=== PATIENT | female | born 1975 | race Caucasian/White ===

== ENCOUNTER → 2017-07-30 | Day surgery (SDC) | payer OTHER, BC ==
--- NOTE | 2017-07-31 13:55 | OP ---
DATE OF OPERATION: 07/30/2017 PREOPERATIVE DIAGNOSIS: Right breast mass 10 o'clock 10 cm from the nipple. POSTOPERATIVE DIAGNOSIS: Right breast mass 10 o'clock 10 cm from the nipple. PROCEDURE: Right ultrasound-guided core biopsy with clip placement. ANESTHESIA: Local. ATTENDING SURGEON: Scot Patino MD ESTIMATED BLOOD LOSS: Minimal. COMPLICATIONS: None. DESCRIPTION OF PROCEDURE: The patient was made aware of the risks and benefits of the procedure and consented. She was placed in the supine position. Under sterile conditions with 1% lidocaine for local anesthesia, a small viji was made in the skin. Using a 13-gauge suction biopsy device and inferolateral approach, multiple cores were obtained. Likewise, under ultrasound guidance, a U-shaped clip was placed into the biopsy region. Steri-Strips and a sterile bandage was applied. Well tolerated by the patient. We will contact her with the results. SCOT PATINO M.D. [id number]
--- NOTE | 2017-08-01 14:11 | PATH ---
Surgical Pathology Report Patient Name: BARB [facility]. Rec. #: [id number] /Age/Gender: 1975 (Age: 42) / F Account: [id number] Location: Taken: 07/30/2017 Received: 07/30/2017 Reported: 08/01/2017 Physicians: Scot Patino M.D. Specimen(s) Received RIGHT BREAST 10N10 CORE BIOPSY Clinical History Palpable mass Ultrasound findings: Probably benign Final Diagnosis BREAST, RIGHT, 10:00, 10 CM FN, CORE BIOPSY: FIBROEPITHELIAL LESION (SEE NOTE). Note: This fibroepithelial lesion shows areas of stromal expansion with stromal hypercellularity, mild stromal cellular atypia and rare mitoses. The differential diagnosis includes phyllodes tumor and cellular fibroadenoma. Complete excision of the lesion is recommended for definitive classification. Electronically Signed Hanna Worthington M.D. Gross Description Received in formalin, labeled "right breast biopsy 10:00, 10 cmfn," are 7 arroyo-yellow, cylindrical portions of fibroadipose tissue ranging from 0.7-2.0 cm. in length and averaging 0.2 cm. in diameter. The specimen is submitted in toto in one cassette. Time to formalin fixation: < 1 minute Total formalin fixation time: Approximately 28 hours. 07/31/2017 [facility]07/31/2017
== END | disposition home or self-care (01) ==
LOC: FRADUS-SUR 12:50
PROVIDERS: ATTEND Surgery Surgical Oncology
PROC: 0HBT3ZX Excision of Right Breast, Percutaneous Approach, Diagnostic (ICD-10-PCS; principal; 2017-07-30)
DX: D24.1 Benign neoplasm of right breast (principal); N63.11 Unspecified lump in the right breast, upper outer quadrant
CPT/HCPCS: 19083; 87899; 88305-TC; A4648

== ENCOUNTER 2017-09-25 07:02 | Day surgery (SDC) | payer OTHER, BC ==
[2017-09-18 12:59] VITALS: BMI 35.2
--- NOTE | 2017-09-19 09:06 | HP ---
Admitting History and Physical - Primary Care Physician PCP: Scot Patino - Admission Chief Complaint: Right breast atypia /phylloides tumor History of Present Illness: 42 year old postmenapausal femal with H/O bilateral fibroadenomas. US bilateral 07/11/2017 showed new mass corresponding to 10:00 right breast birad 4. 07/2017 US core biopsy right breast 10:00 showed fibroepithelial lesion with atypia Excision advised. History Source: Patient Limitations to Obtaining History: No Limitations - Past Medical History Cardiovascular: Yes: HTN ...LMP: 09/15/17 ENT: Yes: Sinusitis (chronic) Endocrine: Yes: Other (multinodular goiter) - Past Surgical History Additional Past Surgical History: right oophorectomy 1992 ovarian cyst hemithyroidectomy goiter 2006 left US core bx 2012 fibroadenoma left FNA benign 2012 - Smoking History Smoking history: Never smoked Aproximately how many cigarettes per day: 0 - Alcohol/Substance Use Hx Alcohol Use: Yes (SOCIALLY) Home Medications - Allergies Allergies/Adverse Reactions: Allergies Allergy/AdvReac Type Severity Reaction Status Date / Time naproxen Allergy Intermediate Swelling Verified 05/01/16 18:43 shellfish derived Allergy Intermediate ABDOMINAL Verified 09/18/17 12:51 PAIN - Home Medications Home Medications: Ambulatory Orders Labetalol HCl [Normodyne] 100 mg PO BID 01/27/13 Levothyroxine [Synthroid] 88 mcg PO DAILY 01/27/13 Cholecalciferol (Vitamin D3) [Vitamin D3] 2,000 unit PO DAILY 09/18/17 Multivitamin [One Daily] 1 each PO DAILY 09/18/17 Family Disease History - Family Disease History Family Disease History: Heart Disease: Grandparent (GM vulvar ca), CA: Grandparent Physical Examination Constitutional: Yes: Well Nourished, No Distress Breast(s): Yes: Other (diffuselly nodular no palpable mass or adenopathy post bx changes right breast 10:00) Problem List - Problems (1) Atypical ductal hyperplasia of right breast Code(s): N60.91 - UNSPECIFIED BENIGN MAMMARY DYSPLASIA OF RIGHT BREAST Assessment/Plan Right breast wide excision with mammogram needle localization
[2017-09-25] MEDS ORDERED: MIDAZOLAM HCL 2 MG/2 ML SINGLE DOSE VIAL ONE (10:37)
[2017-09-25] MEDS ORDERED: LIDOCAINE HCL 1%, 10 MG/ML (20ML VIAL) ONE (10:51)
[2017-09-25] MEDS ORDERED: PROPOFOL 20 ML ONE ×2 (10:59)
[2017-09-25] MEDS ORDERED: ceFAZolin SODIUM 1 GM VIAL ONE (11:10)
[2017-09-25] MEDS ORDERED: DEXAMETHASONE SOD PHOSPHATE 4 MG/1 ML VIAL ONE (11:10)
[2017-09-25] MEDS ORDERED: ONDANSETRON 4 MG/2 ML VIAL ONE (11:10)
[2017-09-25] MEDS ORDERED: BUPIVACAINE HCL 0.25% 125 MG/50 ML VIAL ONE (11:41)
[2017-09-25] MEDS ORDERED: LACTATED RINGERS SOLUTION 1,000 ML IV SCH (12:00)
[2017-09-25] MEDS ORDERED: ONDANSETRON 4 MG/2 ML VIAL IVPUSH PRN ×2 (12:00→12:01)
[2017-09-25] MEDS ORDERED: oxyCODONE HCL 5 MG TABLET PO PRN (12:00)
[2017-09-25] MEDS ORDERED: KETOROLAC TROMETHAMINE 30 MG/1 ML VIAL IVPUSH PRN (12:01)
[2017-09-25] MEDS ORDERED: DEXTROSE 5%-0.45% SALINE 1,000 ML IV SCH (12:15)
[2017-09-25] MEDS ORDERED: ACETAMINOPHEN 500 MG TABLET (FP) ONE (13:40)
[2017-09-25 15:28] VITALS: BP 136/84; PULSE 82; TEMP 98
--- NOTE | 2017-09-28 16:30 | PATH ---
Surgical Pathology Report Patient Name: BARB [facility]USU [facility]. Rec. #: [id number] /Age/Gender: 1975 (Age: 42) / F Account: [id number] Location: [facility] AMBULATORY Taken: 09/25/2017 Received: 09/25/2017 Reported: 09/28/2017 Physicians: Scot Patino M.D. Specimen(s) Received RIGHT BREAST WIDE EXCISION Clinical History Rule out phyllodes Final Diagnosis BREAST, RIGHT, WIDE EXCISION: CELLULAR FIBROADENOMA. REMAINING BREAST TISSUE SHOWS FIBROCYSTIC CHANGES INCLUDED CYSTIC APOCRINE METAPLASIA AND MILD USUAL DUCTAL HYPERPLASIA (UDH). PRIOR BIOPSY SITE CHANGES ARE PRESENT. Electronically Signed Hanna Worthington M.D. Gross Description Received in formalin, labeled "right breast wide excision," is a 2.8 x 2.7 x 2.6 cm. arroyo-yellow, irregular, portion of fibroadipose tissue with a needle localization wire present. There is a short suture marking the superior aspect and a long suture marking the lateral aspect, per the surgeon. There is no skin or nipple present. The specimen is inked as follows: superior and lateral blue; inferior green; medial yellow; anterior red; deep black. The specimen is serially sectioned from lateral to medial. Sectioning reveals a 1.8 x 1.5 x 1.3 cm arroyo, firm to rubbery, well-circumscribed mass at 0.1 cm from the deep margin. The mass is focally at 0.2 cm from the inferior margin, 0.5 cm from the superior margin and is 0.9 cm from the anterior margin. The mass is focally surrounded by dense white fibrous tissue. Invoice Classification Clerk sections are submitted in 6 cassettes as follows: 1-3-one full face section of mass each (each with superior, inferior and deep margins); 4-anterior margin; 5-lateral margin; 6-medial margin. Time to formalin fixation: 4 minutes Total formalin fixation time: Approximately 30 hours. 09/26/201709/26/2017
--- NOTE | 2017-10-08 20:17 | OP ---
DATE OF OPERATION: 09/25/2017 PREOPERATIVE DIAGNOSIS: Right breast cellular fibroadenoma. POSTOPERATIVE DIAGNOSIS: Right breast cellular fibroadenoma. PROCEDURE: Right breast mammographically-localized partial mastectomy. ANESTHESIA: General intubated. ATTENDING SURGEON: Scot Patino MD ESTIMATED BLOOD LOSS: Minimal. COMPLICATIONS: None. DESCRIPTION OF PROCEDURE: Patient was made aware of the risks and benefits of the procedure and consented. She was placed in supine position after going to the Radiology Suite where a needle and wire were placed next to the index lesion. After general anesthesia was induced, the patient was intubated. The operative site was prepped and draped in the usual sterile fashion. Curvilinear incision was made next to the needle and wire. Using electrocautery, thick skin flaps were made. The needle was withdrawn through the puncture site and the wire through the wound. Tissues around the wire were then sharply excised and submitted with a short suture superior, long suture lateral. Specimen radiograph confirmed the presence of the index lesion. The wound was copiously irrigated with normal saline. Hemostasis maintained by electrocautery. The wound was then closed with deep 3-0 Vicryl, followed by a running subcuticular 4-0 Monocryl. Steri-Strips, sterile dressing, and a compression bra were then applied, and the patient, having tolerated the procedure well, was taken to the recovery room in excellent condition. SCOT PATINO M.D. [id number]
== END 2017-09-25 14:45 | disposition home or self-care (01) ==
LOC: FASU 07:02
PROVIDERS: ATTEND Surgery Surgical Oncology
PROC: 0HBT0ZZ Excision of Right Breast, Open Approach (ICD-10-PCS; principal; 2017-09-25 11:20)
DX: D24.1 Benign neoplasm of right breast (principal)
CPT/HCPCS: 19281; 84703; 88307-TC; 94760

== ENCOUNTER 2018-07-24 12:45 | Day surgery (SDC) | payer OTHER, BC ==
[2018-07-24 09:28] VITALS: BMI 33.5
[2018-07-24 13:41] LABS: EOS % 3.9 % (0-4.5); HEMATOCRIT 41.6 % (32.4-45.2); HEMOGLOBIN 13.7 GM/dL (10.7-15.3); LYMPH % 18.7 % (8-40); MCHC 32.9 g/dl (32.0-36.0); MEAN CELL VOLUME 94.2 fl (80-96); MEAN PLT VOLUME 7.1 fl (7.5-11.1); MONO % 9.4 % (3.8-10.2); PLATELET COUNT 347 K/MM3 (134-434); RBC 4.42 M/mm3 (3.60-5.2); RDW 14.4 % (11.6-15.6); WHITE BLOOD COUNT 9.5 K/mm3 (4.0-10.0)
[2018-07-24] MEDS ORDERED: MIDAZOLAM HCL 2 MG/2 ML SINGLE DOSE VIAL ONE (13:56)
[2018-07-24] MEDS ORDERED: PROPOFOL 20 ML ONE (13:56)
[2018-07-24] MEDS ORDERED: LIDOCAINE HCL/PF 2% SDV 5ML VIAL ONE (13:58)
[2018-07-24 14:03] LABS: ALBUMIN 3.8 g/dl (3.4-5.0); ALK PHOS 55 U/L (45-117); ANION GAP 4 MMOL/L (8-16); BILIRUBIN,TOTAL 0.5 mg/dL (0.2-1); BLOOD UREA NITROGEN 11 mg/dL (7-18); CALCIUM 8.9 mg/dL (8.5-10.1); CHLORIDE 110 mmol/L (98-107); CO2 24 mmol/L (21-32); CREATININE 0.7 mg/dL (0.55-1.3); GLUCOSE,RANDOM 85 mg/dL (74-106); SGOT/AST 16 U/L (15-37); SGPT/ALT 23 U/L (13-61); SODIUM 138 mmol/L (136-145); TOT PROT 6.7 g/dl (6.4-8.2)
[2018-07-24] MEDS ORDERED: PROMETHAZINE HCL 25 MG/1 ML VIAL IVPUSH PRN (14:04)
[2018-07-24] MEDS ORDERED: ONDANSETRON 4 MG/2 ML VIAL IVPUSH PRN (14:04)
[2018-07-24] MEDS ORDERED: LACTATED RINGERS SOLUTION 1,000 ML IV SCH (14:15)
[2018-07-24] MEDS ORDERED: DEXAMETHASONE SOD PHOSPHATE 4 MG/1 ML VIAL ONE (14:25)
[2018-07-24] MEDS ORDERED: KETOROLAC TROMETHAMINE 30 MG/1 ML VIAL ONE (14:29)
--- NOTE | 2018-07-24 15:55 | OP ---
Operative Note - Note: Operative Date: 07/24/18 Pre-Operative Diagnosis: Other abnormal products of coneption, missed Ab vs. ectopic Operation: Suction, D&C Findings: Enlarged fibroid uterus Small amount of endometrial curretings Post-Operative Diagnosis: Same as Pre-op Surgeon: Erasmo Guajardo Anesthesiologist/EXECUTIVE SALES ASSISTANT: Jace Figueredo Anesthesia: General Specimens Removed: POC Estimated Blood Loss (mls): 30 Drains, Volume Out (mls): 0 Blood Volume Replaced (mls): 0 Fluid Volume Replaced (mls): 200 Operative Report Dictated: Yes
[2018-07-24 17:19] VITALS: BP 133/77; PULSE 80; TEMP 99.3
--- NOTE | 2018-07-24 19:33 | OP ---
DATE OF OPERATION: 07/24/2018 PREOPERATIVE DIAGNOSIS: Other abnormal products of conception, missed versus ectopic , uterine fibroids. POSTOPERATIVE DIAGNOSIS: Other abnormal products of conception, missed versus ectopic , uterine fibroids. OPERATION: Suction dilation and curettage. SURGEON: Erasmo Guajardo MD SOURCING ASSISTANT: None. ANESTHESIOLOGIST: Jace Figueredo MD ANESTHESIA: General. COMPLICATIONS: None. ESTIMATED BLOOD LOSS: 30 mL. IV FLUIDS: 200 mL crystalloid. PATHOLOGY: Endometrial curettings and products of conception. FINDINGS: Examination under anesthesia revealed an enlarged uterus with fibroids. Suction curettage revealed a small amount of endometrial tissue with possible products of conception. No complications. Good hemostasis. PROCEDURE: The patient was met preoperatively. Risks, benefits, and alternatives of surgery were discussed in detail. All questions were answered. The patient was brought to the OR with the IV running. She was placed on the surgical table in the supine position. The general anesthesia was achieved without difficulty. The patient was then placed in a dorsal lithotomy position using adjustable Lino stirrups. Examination under anesthesia was done with the findings as above. The time-out procedure was conducted as per standard protocol. The patient was then prepped and draped in the usual sterile fashion. A weighed speculum was introduced inside the vagina with good visualization of the cervix. The cervix was grasped with a single-tooth tenaculum. The endocervical canal was dilated to accommodate a size 23 Hernandez dilator. A 7-mm suction curette was then used to perform a suction uterine curettage. A thorough curettage was performed with tissue submitted to Pathology. Once this was completed, a sharp curettage was performed gently to ensure no retained products of conception. The uterine cavity was noted to be markedly enlarged and sounded to approximately 11-12 cm. Once the procedure was completed, all of the instruments were removed from the patient. Sponge, lap, and instrument counts were correct. Good hemostasis was confirmed. The patient was returned to supine position. The patient was then transferred to recovery room in stable condition. Chadd [id number]
--- NOTE | 2018-07-25 11:01 | PATH ---
Surgical Pathology Report Patient Name: [facility]B [facility]. Rec. #: [id number] /Age/Gender: 1975 (Age: 43) / F Account: [id number] Location: [facility] SURGICAL Taken: 07/24/2018 Received: 07/24/2018 Reported: 07/25/2018 Physicians: Erasmo Guajardo M.D. Specimen(s) Received PRODUCTS OF CONCEPTION Clinical History Missed , rule out ectopic Final Diagnosis PRODUCTS OF CONCEPTION, SUCTION DILATION AND CURETTAGE: CHORIONIC VILLI AND DECIDUA PRESENT, CONSISTENT WITH PRODUCTS OF CONCEPTION. This case was discussed with KAYLEIGH Tsai of Dr. Guajardo's office on July 25, 2018. Electronically Signed Anuradha Portillo M.D. Gross Description Received in formalin labeled "products of conception," is a 6.5 x 5.1 x 0.6 cm aggregate of arroyo red soft tissue fragments. No definite villous tissue were somatic tissue is identified. The specimen is entirely submitted in 8 cassettes. /07/24/2018 [place]07/24/2018
== END 2018-07-24 17:15 | disposition home or self-care (01) ==
LOC: JASU-SURG 12:45
PROVIDERS: ATTEND Obstetrics & Gynecology
PROC: 10D17ZZ Extraction of Products of Conception, Retained, Via Natural or Artificial Opening (ICD-10-PCS; principal; 2018-07-24 15:30)
DX: O02.1 Missed abortion (principal)
CPT/HCPCS: 36415; 80053; 84702; 85025; 86850; 86900; 86901; 88305-TC; 94760

== ENCOUNTER 2019-12-15 17:16 | Emergency (ER) | payer OTHER, BC ==
--- NOTE | 2019-12-15 17:43 | PDOC ---
Rapid Medical Evaluation Medical Evaluation: Allergies Allergy/AdvReac Type Severity Reaction Status Date / Time naproxen Allergy Intermediate Swelling Verified 07/24/18 09:37 shellfish derived Allergy Intermediate ABDOMINAL Verified 07/24/18 09:37 PAIN I have performed a brief in-person evaluation of this patient. The patient presents with a chief complaint of: 13 weeks with vaginal bleeding today; denies abd/pelvic pain Pertinent physical exam findings: In NAD, deferred I have ordered the following: labs, pelvic US The patient will proceed to the ED for further evaluation. 12/15/19 17:42 Discharge Disposition - Referrals Referrals: Freddie Roberts MD [Primary Care Provider] - - Patient Instructions - Post Discharge Activity
[2019-12-15 17:44] VITALS: BP 166/89; PULSE 100; TEMP 98.8; BMI 34.4
[2019-12-15] MEDS ORDERED: SODIUM CHLORIDE 0.9% 500 ML INFUS.BAG IV ONE (19:20)
[2019-12-15 19:54] LABS: BASO % 0.4 % (0-2.0); EOS % 3.9 % (0-4.5); HEMATOCRIT 40.1 % (32.4-45.2); HEMOGLOBIN 13.4 GM/dL (10.7-15.3); LYMPH % 15.8 % (8-40); MCH 31.7 pg (25.7-33.7); MCHC 33.4 g/dl (32.0-36.0); MEAN PLT VOLUME 7.4 fl (7.5-11.1); MONO % 9.7 % (3.8-10.2); NEUT % 70.2 % (42.8-82.8); PLATELET COUNT 386 K/MM3 (134-434); RBC 4.23 M/mm3 (3.60-5.2); RDW 14.4 % (11.6-15.6); WHITE BLOOD COUNT 13.8 K/mm3 (4.0-10.0)
--- NOTE | 2019-12-15 20:23 | PDOC ---
History of Present Illness - General Chief Complaint: Vaginal Bleeding Stated Complaint: 13 WKS BLEEDING Time Seen by Provider: 12/15/19 17:42 History Source: Patient - History of Present Illness Initial Comments: 12/15/19 20:23 44 year old female c/o vaginal bleeding (felt a sudden gush) since 4.30pm. patient reports slight pelvic cramping.patient denies Nausea, vomiting. denies urinary symptoms. PMHX: Hypertension, multinodular thyroid cyst. Dr. Barber 12/15/19 20:26 12/16/19 06:00 Past History - Past Medical History Allergies/Adverse Reactions: Allergies Allergy/AdvReac Type Severity Reaction Status Date / Time naproxen Allergy Intermediate Swelling Verified 12/15/19 17:44 shellfish derived Allergy Intermediate ABDOMINAL Verified 12/15/19 17:44 PAIN Home Medications: Ambulatory Orders Levothyroxine [Synthroid -] 88 mcg PO DAILY 01/27/13 Cholecalciferol (Vitamin D3) [Vitamin D3] 2,000 unit PO DAILY 09/18/17 Multivitamin [One Daily] 1 each PO DAILY 09/18/17 Labetalol HCl [Normodyne -] 200 mg PO BID 09/25/17 Oxycodone HCl/Acetaminophen [Percocet 5-325 mg Tablet -] 1 - 2 tab PO Q6H #20 tablet MDD 6 09/25/17 metroNIDAZOLE [Flagyl -] 500 mg PO BID #14 tablet 07/24/18 Anemia: No Asthma: No Cancer: No Cardiac Disorders: No CVA: No COPD: No CHF: No Dementia: No Diabetes: No GI Disorders: No Disorders: No HTN: Yes Hypercholesterolemia: No Liver Disease: No Seizures: No Thyroid Disease: Yes (MULTI-NODULAR GOITER REMOVED 2006) - Surgical History Abdominal Surgery: Yes (OVARIAN CYST REMOVED) Appendectomy: No Cardiac Surgery: No Cholecystectomy: No Lung Surgery: No Neurologic Surgery: No Orthopedic Surgery: No - Psycho Social/Smoking Cessation Hx Smoking Status: No Smoking History: Never smoked Number of Cigarettes Smoked Daily: 0 Hx Alcohol Use: Yes (SOCIALLY) Drug/Substance Use Hx: No Substance Use Type: Alcohol Hx Substance Use Treatment: No Review of Systems - Review of Systems Able to Perform ROS?: Yes Is the patient limited Latvian proficient: No : Yes: Other (vaginal bleeding) *Physical Exam - Vital Signs Last Vital Signs Temp Pulse Resp BP Pulse Ox 98.8 F 100 H 18 166/89 97 12/15/19 17:42 12/15/19 17:42 12/15/19 17:42 12/15/19 17:42 12/15/19 17:42 - Physical Exam General Appearance: Yes: Appropriately Dressed Respiratory/Chest: positive: Normal Breath Sounds Female Pelvic Exam: positive: normal external exam, cervical os closed, other ( minimal bleeding in vaginal vault). negative: adnexal tenderness Gastrointestinal/Abdominal: positive: Normal Bowel Sounds, Soft. negative: Tender Integumentary: positive: Normal Color, Dry, Warm Neurologic: positive: Fully Oriented, Alert ED Treatment Course - LABORATORY CBC & Chemistry Diagram: 12/15/19 17:55 12/15/19 17:55 - ADDITIONAL ORDERS Additional order review: 12/15/19 17:55 RBC 4.23 MCV 95.0 MCHC 33.4 RDW 14.4 MPV 7.4 L Neutrophils % 70.2 Lymphocytes % 15.8 Monocytes % 9.7 Eosinophils % 3.9 Basophils % 0.4 ED Progress Note - Progress Note Progress Note: 12/16/19 06:01 A: Vaginal Bleeding P: cbc cmp beta hcg Type and screen: o positive US Discharge - Discharge Information Problems reviewed: Yes Clinical Impression/Diagnosis: Vaginal bleeding in Disposition: HOME - Follow up/Referral Referrals: Freddie Roberts MD [Staff Physician] - Call tomorrow - Patient Discharge Instructions Patient Printed Discharge Instructions: Vaginal Bleeding During Additional Instructions: Pelvic rest until cleared by marine electronics technician Return to the ER if you are soaking 2 pads per hour, severe abdominal pain, or worsening symptoms. It is very important that you follow-up with emissions technician as soon as possible. Return to the emergency room for any worsening symptoms - Post Discharge Activity Work/Back to School Note: Back to Work
[2019-12-15 20:46] LABS: ALBUMIN 3.4 g/dl (3.4-5.0); BILIRUBIN,TOTAL 0.2 mg/dL (0.2-1); BLOOD UREA NITROGEN 11.4 mg/dL (7-18); CALCIUM 9.2 mg/dL (8.5-10.1); CREATININE 0.6 mg/dL (0.55-1.3); POTASSIUM 4.1 mmol/L (3.5-5.1); TOT PROT 6.8 g/dl (6.4-8.2)
[2019-12-15 21:50] LABS: HYALINE CASTS 1 /lpf (0-8); PH,URINE 6.5 (5.0-8.0); URINE APPEARANCE CLEAR; URINE BACTERIA 17.5 /hpf (NEGATIVE); URINE BILIRUBIN NEGATIVE (NEGATIVE); URINE COLOR YELLOW; URINE GLUCOSE (UA) NEGATIVE (NEGATIVE); URINE KETONE NEGATIVE (NEGATIVE); URINE LEUK ESTERASE TRACE (NEGATIVE); URINE NITRITE NEGATIVE (NEGATIVE); URINE PROTEIN NEGATIVE (NEGATIVE); URINE RBC 2 /hpf (0-4); URINE UROBILINOGEN 0.2 mg/dL (0.2-1.0); URINE WBC 5 /hpf (0-5)
== END 2019-12-15 22:16 | disposition home or self-care (01) ==
LOC: JER 17:16
DX: O26.891 Other specified pregnancy related conditions, first trimester (principal); O20.8 Other hemorrhage in early pregnancy; O34.11 Maternal care for benign tumor of corpus uteri, first trimester; D25.9 Leiomyoma of uterus, unspecified; Z3A.13 13 weeks gestation of pregnancy; Z88.6 Allergy status to analgesic agent; Z91.013 Allergy to seafood
CPT/HCPCS: 36415; 76801-TC; 80053; 81003; 84702; 85025; 86850; 86900; 86901; 99284-25